=== PATIENT | male | born 1970 | race Caucasian/White ===

== ENCOUNTER → 2017-02-11 | Outpatient (CLI) | payer OTHER | END | disposition home or self-care (01) | LOC: GMAM 10:55 | PROVIDERS: ATTEND Family Medicine | DX: Z12.5 Encounter for screening for malignant neoplasm of prostate (principal); Z79.899 Other long term (current) drug therapy; E55.9 Vitamin D deficiency, unspecified ==

== ENCOUNTER 2017-07-18 16:55 | Emergency (ER) | payer OTHER ==
[2017-07-18] MEDS ORDERED: ADENOSINE INJ 6 MG/2 ML SYG IV ONE (17:08)
--- NOTE | 2017-07-18 17:12 | ED.PDOC ---
History of Present Illness - General Chief Complaint: Cardiovascular Problem Stated Complaint: Rapid heart rate Time Seen by Provider: 07/18/17 17:05 Source: patient, RN notes reviewed, Vital Signs reviewed Exam Limitations: no limitations - History of Present Illness Initial Comments: Patient comes in with a rapid heart rate. Reports this has happened a few times but normally he can get it to stop with vagal maneuvers. This time they did not work. This current episode started ~2 hours ago. Denies chest pain, SOB or nausea, just has a fluttering in his chest. He has never seen a order desk caller. He did have a holter monitor done but it did not pick anything up. Timing/Duration: 1-3 hours Severity: moderate Location: substernal Prior Chest Pain/Cardiac Workup: no prior chest pain, no prior cardiac workup - except a holter monitor Improving Factors: nothing Worsening Factors: nothing Nitro Today/Relief: no nitro taken today Aspirin Treatment Today: no aspirin today Associated Symptoms: denies symptoms Allergies/Adverse Reactions: Allergies NO KNOWN ALLERGY Allergy (Verified 07/18/17 17:15) Home Medications: Ambulatory Orders Cyclobenzaprine HCl [Flexeril] 10 mg PO PRN 07/18/17 HYDROcodone 10MG/APAP 325MG [[place] 10/325] 1 tab PO PRN 07/18/17 Lisinopril 5 mg PO DAILY 07/18/17 Review of Systems - Review of Systems Constitutional: States: no symptoms reported Respiratory: States: no symptoms reported. Denies: short of breath Cardiology: States: palpitations. Denies: chest pain Gastrointestinal/Abdominal: States: no symptoms reported, nausea Musculoskeletal: States: no symptoms reported Skin: States: no symptoms reported Neurological: States: other - feels a little tingly in his head All other Systems: No Change from Baseline Family Medical History - Family History Father Family History: Unknown Living Status: Unknown Physical Exam - Physical Exam General Appearance: Alert, Comfortable, No apparent distress, Well Developed, Well Groomed, Well Hydrated, Well Nourished Neck: supple, normal inspection Respiratory: lungs clear, normal breath sounds, no respiratory distress, no accessory muscle use Cardiovascular/Chest: no gallop, no murmur, tachycardia - regular Extremity: normal range of motion Neurologic: alert, normal mood/affect, oriented x 3 Skin Exam: normal color, warm/dry Progress - Progress Progress: 07/18/17 17:24 HR was 166. Gave Adenosine 6mg IVP. HR came down to 75 and is now in the 90's 07/18/17 17:58 Patient is doing well. Comfortable. HR 90 07/18/17 19:15 Patient continues to do well. HR 83. Will d/c home. - Results/Orders Results/Orders: Laboratory Tests 07/18/17 07/18/17 17:13 17:13 WBC 9.7 RBC 5.68 Hgb 16.1 Hct 47.4 MCV 83.4 MCH 28.3 MCHC 33.9 RDW 14.1 Plt Count 238 MPV 9.1 Absolute Neuts (auto) 5.50 Absolute Lymphs (auto) 3.20 Absolute Monos (auto) 0.70 Absolute Eos (auto) 0.20 Absolute Basos (auto) 0.10 Neutrophils % 56.3 Lymphocytes % 32.9 Monocytes % 7.6 Eosinophils % 1.9 Basophils % 1.3 Sodium 137 Potassium 4.0 Chloride 102 Carbon Dioxide 25 Anion Gap 14.0 BUN 14 Creatinine 0.89 BUN/Creatinine Ratio 15.7 Random Glucose 106 H Serum Osmolality 274.7 L Calcium 9.4 Total Bilirubin 0.2 AST 44 H ALT 69 H Alkaline Phosphatase 100 Creatine Kinase 77 CK-MB (CK-2) 1.6 CK-MB (CK-2) % Not Reportable Troponin I < 0.02 Serum Total Protein 8.1 Albumin 4.8 Globulin 3.3 Albumin/Globulin Ratio 1.5 - EKG/XRAY/CT EKG: Sinus, Tachy, nonspecific ST T wave Chg Comments: SVT - Rate 164 - Additional EKG/XRAY/Consults EKG #2: Sinus, no ST T wave changes Comments: AFter Adenosine 6mg IVP - Sinus rhythm, Rate 91 Departure - Departure Clinical Impression: Supraventricular tachycardia by ECG Time of Disposition: 19:15 Disposition: Discharge to Home or Self Care Condition: Good Departure Forms: ED Discharge - Pt. Copy, Patient Portal Self Enrollment Instructions: DI for Paroxysmal Supraventricular Tachycardia Diet: resume usual diet Activity: increase activity as tolerated Referrals: Paul Chavez MD [Primary Care Provider] - 1-5 Days Home Medications: Ambulatory Orders Cyclobenzaprine HCl [Flexeril] 10 mg PO PRN 07/18/17 HYDROcodone 10MG/APAP 325MG [[place] 10/325] 1 tab PO PRN 07/18/17 Lisinopril 5 mg PO DAILY 07/18/17
[2017-07-18 17:16] VITALS: TEMP 97.1
--- NOTE | 2017-07-18 17:20 | RAD ---
EXAM DESCRIPTION: Chest,1 View CLINICAL HISTORY: 46 years Male Palpitations COMPARISON: None. FINDINGS: The cardiomediastinal silhouette appears unremarkable. No consolidating infiltrates or pleural effusions. No pneumothorax. Overlying monitoring devices are present. There is rightward convexity thoracic curvature. Small amount of atelectasis in the medial right lung base. IMPRESSION: No acute abnormality is identified. Electronically signed by: Maria A Mckeon 07/18/2017 5:19 PM CDT
[2017-07-18 19:17] VITALS: BP 147/108; O2SAT 98
== END 2017-07-18 19:27 | disposition home or self-care (01) ==
LOC: ER 16:55
DX: R00.0 Tachycardia, unspecified (principal)
CPT/HCPCS: 36415; 71010; 80053; 82550; 82553; 84484; 85025; 93005; J0153

== ENCOUNTER → 2019-03-17 | Outpatient (CLI) | payer OTHER | LOC: SL 19:46 | PROVIDERS: ATTEND Family Medicine | DX: G47.33 Obstructive sleep apnea (adult) (pediatric) (principal) ==

== ENCOUNTER 2019-08-22 23:23 | Emergency (ER) | payer OTHER ==
[~2019-08-22 23:23] MED LIST: EPINEPHrine INJ 0.1 MG/ML 10 ML SYG IV ONE
[2019-08-22] MEDS ORDERED: EPINEPHrine INJ 0.1 MG/ML 10 ML SYG IV ONE ×7 (23:27→23:58)
[2019-08-22] MEDS ORDERED: AMIODARONE HCL 150 MG/3 ML VIAL IVPB ONE (23:31)
[2019-08-22] MEDS ORDERED: SODIUM CHLORIDE 0.9% 1000ML 1,000 ML ONE (23:43)
[2019-08-22] MEDS ORDERED: ATROPINE 1 MG/10 ML SYG IV ONE (23:53)
[2019-08-22] MEDS ORDERED: SODIUM BICARBONATE VIAL 50 MEQ/50 ML VIAL IV ONE (23:57)
[2019-08-23] MEDS ORDERED: EPINEPHrine INJ 0.1 MG/ML 10 ML SYG ONE ×2 (00:04)
[2019-08-23 01:40] VITALS: O2SAT 90
[2019-08-23 03:58] VITALS: TEMP 93.1
--- NOTE | 2019-08-23 05:31 | ED.PDOC ---
History of Present Illness - General Chief Complaint: Cardiac Respiratory Arrest Stated Complaint: cardiac arrest - History of Present Illness Initial Comments: pt woke up at 11 pm to go to rest room , in the rest room he felt numbness in the face and hands and fell down and collapse , EMS was called and started CPR , passed ETT , brought to the [place] [facility] where almost 45 mins of advanced CPR was done and then was announced . CPR was done according to the ACLS guidelines , details are in the nursing notes Allergies/Adverse Reactions: Allergies NO KNOWN ALLERGY Allergy (Verified 07/18/17 17:15) Home Medications: Ambulatory Orders Cyclobenzaprine HCl [Flexeril] 10 mg PO PRN 07/18/17 HYDROcodone 10MG/APAP 325MG [[place] 10] 1 tab PO PRN 07/18/17 Lisinopril 5 mg PO DAILY 07/18/17 Review of Systems - Review of Systems Unable to Obtain Due To: condition, intubated, clinical condition Past Medical History (General) - Patient Medical History Hx Cardiac Disorders: Yes Hx Congestive Heart Failure: No Hx Hypertension: Yes Hx Diabetes: No - Vaccination History Hx Influenza Vaccination: No Immunizations Up to Date: Yes - Social History Hx Tobacco Use: Yes Family Medical History - Family History Father Family History: Unknown Living Status: Unknown Physical Exam - Physical Exam General Appearance: Other - Unconscious, intubated Eyes, Ears, Nose, Throat Exam: other - fixed dilated pupil Respiratory: decreased breath sounds Cardiovascular/Chest: tachycardia, irregularly irregular Neurologic: other - unresponsive , unconsciouness Skin Exam: other - cold and clammy Lymphatic: no adenopathy Progress - Progress Progress: 08/23/19 05:36 5-patient arrived via [facility] to ED CPR in progress with Lucus device in place. AA&O x's 0. EMS states patient was found in the bathroom by spouse who called 911. Patient C/O severe arm pain, N/V, dizziness and then fell to ground per . When EMS arrived patient's pupils were fixed and dilated. CPR was immediately started. Patient intubated by EMS prior to arriving to ED. ET tube size 7 at 22cm at the teeth. IO to left upper arm patent. Patient was given 4 epinephrine, amiodarone 300mg, shocked x's 3 prior to arriving to the ED. 2326- shocked with 300 joules, V-Fib, Lucus device resumed 2327- Epinephrine 1mg given IVP 2328- Lucus device paused, V-Fib noted 232- Shock given at 300 joules, lucus device resumed 2330- epinephrine 1mg given IVP 233- amniodarone 150mg given IVP 233- lucus device paused, v-Fib, shocked at 300 joules 2335- continues in V-Fib shocked at 300 joules, lucus device resumed 2336- epinephrine 1mg given IVP 2340- lucus device paused, no hearbeat noted, lucus device resumed, ETCO 22 2343- epinephrine 1mg given IVP, femoral pulse faint 234- [facility] contacted for transfer, ETA 35 minutes 2347- epinephrine 1mg given IVP 235- lucus device paused, pulse check, V-Fib, shocked at 300 joules, monitor showing HR at 29, lucus device resumed 2352- epinephrine 1mg given IVP, monitor showing HR 82, B/P continues to be unobtainable 2353- Atropine 1mg given IVP, lucus device paused, V-Fib, lucus device resumed 2356- lucus device paused, V-Fib, shocked at 300 joules, faint femoral pulse, lucus device resumed 2357-Sodium Bicarb 1 amp given IVP, NS 1000ml started at KVO 2358- Epinephrine 1mg given IVP, lucus device paused, pulse check, no pulse noted, lucus device resumed 0002-lucus device paused, pulse check, V-Fib, lucus device resumed, staff continues to try to obtain lab specimens-unsuccessful attempts 0005-epinephrine 1mg given IVP 0007-lucus device paused, pulse check, HR on monitor 31-33, shocked at 300 joules, lucus device resumed, O2 sat 88% 0009-epinephrine 1mg given IVP, lucus device paused, V-Fib, lucus device resumed 0011- ETCO2 32 RR 20 O2 sat 83% 0012- epinephrine 1mg given IVP O2 79% 0013- lucus device paused, pulse check, V-Fib, lucus device resumed 5- Dr. Oscar with ultrasound machine look at heart, no activity noted 0018-epinephrine 1mg given IVP 0023- epinephrine 1mg given IVP 0024- lucus device paused, PEA noted, shocked at 300 joules, lucus device resumed 0027- lucus device paused, pulse check, no femoral pulse noted, lucus device resumed 0029- epinephrine 1mg given IVP 0029- [facility] team arrived to the ED 0030- lucus device paused, pulse check PEA, shocked at 300 joules, 0031- shocked at 300 joules 0034- epinephrine 1mg given IVP 0036- lucus device paused, pulse check, PEA, shocked at 300 joules, lucus device resumed 0038- lucus device paused, PEA continues, lucus device resumed 0040- epinephrine 1mg given IVP 0041- lucus device paused, continues in PEA, shocked at 300 joules 0042- lucus device resumed 0043- FSBS 349 0044- lucus device stopped, pulse check, PEA 0045- shocked at 300 joules, l 0046- lucus device resumed 0048- lucus device paused, Dr. Oscar using ultrasound on chest, no heart activity noted 0049- lucus device resumed 0053- Roger Veloz- EMT-P with [facility] calling MD director Dr. Hughes as a second to voice no further measures are obtainable for patient 0057- patient continues AA&O x's 0, no spontaneous breathing noted, no heartbeat longer than a minute 0058- TOD called by Dr. Oscar at 0058 0107- Nabil PALMA and ELSIE notified 0112- Nabil PALMA arrived to ED 0113- ELSIE Mak Kumar called states he will be to the ED soon 0135- ELSIE arrived to ED 0147- [facility] notified of patient per family request 0157- home arrived 015- organ donation called by ROLANDO Terrell 022- body released to [facility] per family request Departure - Departure Clinical Impression: Cardiac arrest, Supraventricular tachycardia by ECG, Ventricular fibrillation Disposition: Departure Forms: ED Discharge - Pt. Copy Home Medications: Ambulatory Orders Cyclobenzaprine HCl [Flexeril] 10 mg PO PRN 07/18/17 HYDROcodone 10MG/APAP 325MG [[place] ] 1 tab PO PRN 07/18/17 Lisinopril 5 mg PO DAILY 07/18/17
== END 2019-08-23 00:58 | disposition expired ==
LOC: ER 23:23
DX: I46.9 Cardiac arrest, cause unspecified (principal); I47.1 Supraventricular tachycardia; I49.01 Ventricular fibrillation; I51.9 Heart disease, unspecified; I10 Essential (primary) hypertension; Z79.899 Other long term (current) drug therapy; Z87.891 Personal history of nicotine dependence
CPT/HCPCS: 92950; 94770; J0282; J7030